=== PATIENT | male | born 1935 | race Caucasian/White ===

== ENCOUNTER → 2016-11-10 | Outpatient (CLI) | payer OTHER ==
[~2016-11-10] MED LIST: BENAZEPRIL HCL20 MG PO; FLOMAX0.4 MG PO; HYDROCHLOROTH12.5 M1 PO; HYDROCODONE-APA1 TA1 PO; PRILOSEC20 MG PO; SIMVASTATIN10 MG PO
== END ==
LOC: CAT 16:16
DX: K76.89 Other specified diseases of liver (principal); D18.00 Hemangioma unspecified site; J90 Pleural effusion, not elsewhere classified; J98.11 Atelectasis; R10.32 Left lower quadrant pain

== ENCOUNTER 2016-12-01 03:32 | Inpatient (IN) | payer OTHER ==
[~2016-12-01] VITALS: Ht 180.3 cm; Wt 74.9 kg
--- NOTE | ~2016-12-01 | P ---
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 He reports since September he has been having trouble swallowing. He just finished radiation therapy 2 days ago for the spine lesion. He reports he feels full almost immediately and has no appetite. Questionable history of dysphagia. He reports that even if he has couple of bites he will "bring it back up". PREOPERATIVE DIAGNOSES: Early satiety, vomiting and dysphagia. POSTOPERATIVE DIAGNOSES: 1. A 3 cm sliding type hiatus hernia. 2. Mild to moderate Schatzki ring. MEDICATIONS: Deep sedation with propofol per anesthesia. SPECIMEN: None. ESTIMATED BLOOD LOSS: None. PROCEDURE: Esophagogastroduodenoscopy with Hodge dilation. FINDINGS: Prior to propofol sedation, procedure of upper endoscopy was discussed over endoscopy and potential dilation was discussed with the patient as well as potential risks and its complications. He indicates he understands and desires to proceed. DESCRIPTION OF PROCEDURE: With the patient in left lateral decubitus position, the Fuji video endoscope was inserted in the cervical esophagus under direct vision without difficulty. Examination of this organ to its entire length revealed normal esophageal mucosa. The scope was advanced through the entire length of the esophagus. The mucosa was within normal limits. I did not see any evidence of ulceration mucosa disease from radiation therapy. Examination of the squamocolumnar junction revealed to be intact. He was noted to have a mild to moderate Schatzki ring. The scope passed easily through the ring. Scope was advanced into the stomach, which was examined on end view as well as retroflexed views. He was noted to have about 3 cm sliding type hiatus hernia. [facility] [address] [place] [address] PROCEDURE REPORT Name: ANNMARIE CHARLES Room #: 421-P ADM IN M.R.#: [id number] Admission: 12/01/16 Attend Phys: Paul Olmos MD Discharge: Date of : 35 Report #: [id number] Mucosa in the hernia was unremarkable. Upon retroflexion, the hiatus hernia was seen. No other abnormalities were identified. The pylorus was normal. Duodenal bulb was normal. Doing a sweep down to ligament of Treitz was normal. There is a history of a duodenal submucosal lesion in the second portion of duodenum, I could not identify any such lesion. No mass lesions were seen. Both the major and minor were seen and both were within normal limits. At that point, the scope was slowly withdrawn and careful circumferential views confirmed the above findings. The patient tolerated the procedure well. CONDITION OF THE PATIENT UPON DISCHARGE: Following the procedure, he was dilated with passage of 50-[place] Hodge dilator very carefully. The dilator passed without any significant risk resistance. The scope was reinserted and no evidence of a mucosal trauma from the dilation. Bleeding was not seen. 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 He described early satiety and vomiting and possibly dysphagia. I do not see any specific lesions. I do not see endoscopic evidence or gastroparesis. He had been on morphine for pain. He may have secondary gastroparesis with regards to his naroctics. He was recently started on metoclopramide. I will agree with the use of metoclopramide, at least on a short from basis. We will request a gastric emptying study to further evaluate his symptoms. Proton pump inhibitor would also be reasonable at this point. <ELECTRONICALLY SIGNED> By: Riley Ware MD 12/02/16 1714 0856 1145 Riley Ware MD /nt
--- NOTE | ~2016-12-01 | HC ---
[facility] [place] [address] CONSULTATION Name: ANNMARIE CHARLES Room #: 421-P [facility] IN M.R.#: [id number] Admission: 12/01/16 Attend Phys: Paul Olmos MD Discharge: Date of : 35 Report #: [id number] THIS REPORT FOR: //name// CC: Usha Olmos MD PRIMARY CARE PHYSICIAN: Usha De Leon M.D. REASON FOR CONSULTATION: History of left ureteral cancer. HISTORY OF PRESENT ILLNESS: The patient is an 81-year-old male who has a history of ureteral cancer since 07/31/2014. At that time, he had 2 lymph nodes that were positive and removed. The patient received adjuvant Taxol and carboplatin. He began chemotherapy on 09/25/2014. He had his ninth cycle on 05/20/2015. He then was on an investigational agent in November of 2015, with response and we have been watching this cancer and it has been slowly growing. He has been relatively asymptomatic. Unfortunately, he has had persistent, almost like an early satiety with vomiting may be 2-3 minutes after eating and drinking. He also has, what sounds like, constipation, though it is hard to tell. It sounds like maybe it is more that his bowels are slow, but not necessarily too firm. He also has a history of arthritis, hyperlipidemia and hypertension. The patient recently denied fevers, chills. Did have some dysesthesias which have pretty much gone away. He had no blood in his urine or stool. No melena. No shortness of air. No chest pain. No vision troubles. No mentation difficulties. PAST MEDICAL HISTORY: Past history, in addition to his history of the left-sided urothelial cancer, he also recently completed radiation therapy to T9 for back pain, which is now slightly better. He also has diffuse abdominal discomfort which is more anterior, more like cramping in nature. We tried tizanidine in the past and that had not worked very well. He has used milk of magnesia. He used Fleet. History of hyperlipidemia, appendectomy, GERD, left heel open reduction and internal fixation and bilateral cataracts. ALLERGIES: None. MEDICATIONS: At this time in the hospital include pantoprazole 40 b.i.d.; tamsulosin 0.4 daily; hydralazine p.r.n.; morphine controlled 30 b.i.d.; metoclopramide 10 b.i.d., begun on the ; Senokot S one tab daily, begun on 12/01; magnesium hydroxide p.r.n.; morphine p.r.n.; loratadine 10 mg daily; aspirin 81 daily and lisinopril 20 daily. PHYSICAL EXAMINATION: [facility] [address] [place] [address] CONSULTATION Name: ANNMARIE CHARLES Room #: 421-P [facility] IN M.R.#: [id number] Admission: 12/01/16 Attend Phys: Paul Olmos MD Discharge: Date of : 35 Report #: [id number] GENERAL: The patient appears his stated age. VITAL SIGNS: Height is 5 foot 11, which is 180.3 cm. Weight is 161 pounds, which is 73 kilograms. Blood pressure is 157/95, O2 sat 95, pulse 79, respirations 18 and temperature 97.7. He is afebrile. MOOD: He is alert and pleasant and conversant. His is present. NEUROLOGIC: His face is symmetrical. He is moving all extremities. He has good speech patterns. HEENT: Oropharynx clear. LUNGS: Clear with good symmetric, unlabored expansion. No wheezes or rhonchi. HEART: Regular rate. LYMPHATICS: No enlarged lymph nodes in the supraclavicular, cervical, axillary or inguinal region. ABDOMEN: He does have some slight tenderness, but no mass. EXTREMITIES: Without clubbing or cyanosis. LABORATORY DATA: Note that his recent CAT scan does have adrenal mass, which has been slightly large and thought to be cancer. He had a recent CAT scan done on 12/01/2016. This was compared to November 15. There was a pleural effusion on the left side, measuring 2.4 cm. Liver has some low-density lesions, thought to be suggestive for cysts. Kidneys, no hydronephrosis on the right; left is absent. Adrenal gland, large soft-tissue mass on the left, measuring 35 x 35 mm. Right adrenal gland is normal size. Abdominal aorta measures 25 mm. Retroperitoneal adenopathy on the right side, 22 x 18 mm, fairly stable compared to prior. There is also some similar para-aortic and paraceliac adenopathy. The left para-aortic adenopathy is slightly large at 24 x 20 mm. No fluid collections. Recent labs on this admit notable for BUN 16 and creatinine of 1.1. Liver functions normal. Albumin 3.2. White count 5.3, hemoglobin 12.2, MCV 93.5 and platelets 180,000. Differential fairly normal. ASSESSMENT AND PLAN: 1. Left ureteral cancer, recurrent, slowly progressing. It is possible the patient may have gastric wall involvement. We will wait to see gastric emptying time and/or wait to see benefit from Reglan. If it is thought this may be cancer related, could initiate chemotherapy with Gemzar and carboplatin, which we have been thinking about and we are aware of reasonable next step. There is also immunotherapy which is now available, but this could be longer to response rate. 2. Abdominal pain and back pain. Continue MS Contin and taper as needed. 3. Constipation. Continues meds as needed. [facility] [address] [place] [address] CONSULTATION Name: ANNMARIE CHARLES Room #: 421-P [facility] IN M.R.#: [id number] Admission: 12/01/16 Attend Phys: Paul Olmos MD Discharge: Date of : 35 Report #: [id number] 4. Hypertension. Meds as needed. 5. Allergies, loratadine. We will follow with you. <ELECTRONICALLY SIGNED> By: Tylor Bauer MD 12/04/16 0722 0908 1244 Tylor Bauer MD /nt
[2016-12-01 03:33] VITALS: BP 118/85
[2016-12-01] MEDS ORDERED: ASPIR 8181 MG PO (03:46)
[2016-12-01] MEDS ORDERED: MS CONTIN15 MG PO (03:47)
[2016-12-01] MEDS ORDERED: CLARITIN10 MG PO (03:48)
[2016-12-01 03:59] LABS: HEMATOCRIT 37.8 % (42.0-52.0); HEMOGLOBIN 12.9 gm/dL (14.0-18.0); MCH 31.7 pg (26.0-34.0); MCHC 34.2 g/dL (28.0-37.0); MCV 92.8 fL (80.0-100.0); PLATELET COUNT 217 thou/uL (150-400); RBC 4.07 mil/uL (4.50-6.00); RDW 12.6 % (10.5-14.5); WBC 6.7 thou/uL (4.0-11.0)
[2016-12-01 04:00] LABS: MANUAL DIFF YES
[2016-12-01 04:05] LABS: CALCIUM 8.8 mg/dL (8.5-10.1); CREATININE 1.4 mg/dL (0.7-1.3); POTASSIUM 4.3 mmol/L (3.5-5.1)
[2016-12-01 04:10] LABS: ALBUMIN 3.2 g/dL (3.4-5.0); DIRECT BILIRUBIN 0.3 mg/dL (<0.1-0.3); TOTAL BILIRUBIN 0.9 mg/dL (<0.1-1.0); TOTAL PROTEIN 6.5 g/dL (6.4-8.2)
[2016-12-01 04:41] LABS: ABSOLUTE NEUTROPHILS 5.4 thou/uL (1.4-8.2); TOTAL CELL COUNT 100
[2016-12-01 07:30] VITALS: BP 140/76
[2016-12-01 07:45] VITALS: BP 137/92
[2016-12-01 15:54] VITALS: BP 153/93
[2016-12-01 20:00] VITALS: BP 151/95
[2016-12-02 03:52] LABS: HEMATOCRIT 35.5 % (42.0-52.0); HEMOGLOBIN 12.2 gm/dL (14.0-18.0); MCH 32.1 pg (26.0-34.0); MCHC 34.3 g/dL (28.0-37.0); MCV 93.5 fL (80.0-100.0); RBC 3.79 mil/uL (4.50-6.00); RDW 12.4 % (10.5-14.5); WBC 5.3 thou/uL (4.0-11.0)
[2016-12-02 04:13] LABS: CREATININE 1.1 mg/dL (0.7-1.3); MAGNESIUM 1.8 mg/dL (1.8-2.4); POTASSIUM 3.6 mmol/L (3.5-5.1)
[2016-12-02 04:30] VITALS: BP 157/93
[2016-12-02 07:41] VITALS: BP 153/85
[2016-12-02 15:52] VITALS: BP 157/87
[2016-12-02 20:11] VITALS: BP 153/96
[2016-12-03 03:26] VITALS: BP 149/97
[2016-12-03 07:18] VITALS: BP 157/95
[2016-12-03 09:44] LABS: ALBUMIN 3.1 g/dL (3.4-5.0); CALCIUM 8.3 mg/dL (8.5-10.1); CREATININE 1.1 mg/dL (0.7-1.3); POTASSIUM 3.5 mmol/L (3.5-5.1); TOTAL BILIRUBIN 0.8 mg/dL (<0.1-1.0); TOTAL PROTEIN 6.1 g/dL (6.4-8.2)
[2016-12-03 16:08] VITALS: BP 156/103
[2016-12-03 20:00] VITALS: BP 169/99
[2016-12-04 01:30] VITALS: BP 162/99
[2016-12-04 04:23] LABS: HEMATOCRIT 38.3 % (42.0-52.0); HEMOGLOBIN 13.3 gm/dL (14.0-18.0); MCH 32.1 pg (26.0-34.0); MCHC 34.7 g/dL (28.0-37.0); MCV 92.6 fL (80.0-100.0); RBC 4.13 mil/uL (4.50-6.00); RDW 12.7 % (10.5-14.5); WBC 6.9 thou/uL (4.0-11.0)
[2016-12-04 04:30] VITALS: BP 174/108
[2016-12-04 07:32] VITALS: BP 168/92
[2016-12-04 12:31] LABS: URINE BILIRUBIN NEGATIVE (Negative); URINE BLOOD NEGATIVE (Negative); URINE COLOR YELLOW; URINE GLUCOSE-RANDOM* NEGATIVE (Negative); URINE KETONES 2+ (Negative); URINE NITRITE NEGATIVE (Negative); URINE PROTEIN (DIPSTICK) TRACE (Negative); URINE SPECIFIC GRAVITY >= 1.030 (1.003-1.035); URINE UROBILINOGEN 0.2 E.U./dl (0.2-1.0)
[2016-12-04 16:20] VITALS: BP 183/101
[2016-12-04 17:40] VITALS: BP 151/82
[2016-12-04 20:17] VITALS: BP 141/91
[2016-12-05 03:00] VITALS: BP 160/92
[2016-12-05 05:23] LABS: HEMATOCRIT 35.8 % (42.0-52.0); HEMOGLOBIN 12.4 gm/dL (14.0-18.0); MCHC 34.5 g/dL (28.0-37.0); MCV 92.7 fL (80.0-100.0); RBC 3.86 mil/uL (4.50-6.00); RDW 12.7 % (10.5-14.5); WBC 5.4 thou/uL (4.0-11.0)
[2016-12-05 05:37] LABS: ALBUMIN 2.5 g/dL (3.4-5.0); CALCIUM 7.9 mg/dL (8.5-10.1); POTASSIUM 3.1 mmol/L (3.5-5.1); TOTAL BILIRUBIN 0.6 mg/dL (<0.1-1.0); TOTAL PROTEIN 5.6 g/dL (6.4-8.2)
[2016-12-05 07:44] VITALS: BP 162/93
[2016-12-05] MEDS ORDERED: REGLAN 10 MG TA10 MG PO ×2 (09:25→09:35)
[2016-12-05 10:21] VITALS: BP 162/93
[2016-12-05 10:41] VITALS: BP 162/93
== END 2016-12-05 13:56 | disposition home health service (06) | DRG 686 ==
LOC: ER 03:32 → EROBS 06:21 → 4E 06:21
PROVIDERS: Emergency Medicine; Hospitalist; Nurse Practitioner
PROC: 0D758ZZ Dilation of Esophagus, Via Natural or Artificial Opening Endoscopic (ICD-10-PCS; principal; 2016-12-02)
DX: C66.9 Malignant neoplasm of unspecified ureter (principal); E43 Unspecified severe protein-calorie malnutrition; E87.1 Hypo-osmolality and hyponatremia; N17.9 Acute kidney failure, unspecified; J90 Pleural effusion, not elsewhere classified; I10 Essential (primary) hypertension; E78.5 Hyperlipidemia, unspecified; K21.9 Gastro-esophageal reflux disease without esophagitis; K59.00 Constipation, unspecified; N40.0 Benign prostatic hyperplasia without lower urinary tract symptoms; K22.2 Esophageal obstruction; K44.9 Diaphragmatic hernia without obstruction or gangrene; G62.9 Polyneuropathy, unspecified; R59.9 Enlarged lymph nodes, unspecified; Z79.82 Long term (current) use of aspirin; Z79.899 Other long term (current) drug therapy; Z90.49 Acquired absence of other specified parts of digestive tract; Z98.42 Cataract extraction status, left eye; Z98.41 Cataract extraction status, right eye; Z85.54 Personal history of malignant neoplasm of ureter; Z90.5 Acquired absence of kidney; Z68.23 Body mass index [BMI] 23.0-23.9, adult
CPT/HCPCS: 10084; 62110; 62900; 70005

== ENCOUNTER → 2016-12-12 | Outpatient (CLI) | payer OTHER ==
[~2016-12-12] MED LIST changes: +ASPIR 8181 MG PO; +CLARITIN10 MG PO; +MS CONTIN15 MG PO; +REGLAN 10 MG TA10 MG PO
== END ==
LOC: CAT 11:05
DX: N40.0 Benign prostatic hyperplasia without lower urinary tract symptoms (principal); K44.9 Diaphragmatic hernia without obstruction or gangrene; J90 Pleural effusion, not elsewhere classified; J98.11 Atelectasis; J18.9 Pneumonia, unspecified organism; R16.0 Hepatomegaly, not elsewhere classified

== ENCOUNTER 2016-12-20 02:52 | Emergency (ER) | payer OTHER ==
[~2016-12-20] VITALS: Ht 180.3 cm; Wt 69.4 kg
[2016-12-20 03:27] LABS: ABSOLUTE NEUTROPHILS 7.7 thou/uL (1.4-8.2); BASOPHILS 0.3 % (0.0-2.0); EOSINOPHILS 0.5 % (0.0-3.0); HEMATOCRIT 37.9 % (42.0-52.0); HEMOGLOBIN 13.3 gm/dL (14.0-18.0); LYMPHOCYTES 10.8 % (24.0-44.0); MCH 32.1 pg (26.0-34.0); MCV 91.7 fL (80.0-100.0); MONOCYTES 7.1 % (1.0-8.0); PLATELET COUNT 232 thou/uL (150-400); POLYS 81.3 % (36.0-66.0); RBC 4.14 mil/uL (4.50-6.00); RDW 13.6 % (10.5-14.5); WBC 9.5 thou/uL (4.0-11.0)
[2016-12-20 03:37] LABS: MANUAL DIFF NO
[2016-12-20 04:17] LABS: ALBUMIN 3.2 g/dL (3.4-5.0); CALCIUM 8.3 mg/dL (8.5-10.1); CREATININE 1.1 mg/dL (0.7-1.3); POTASSIUM 3.2 mmol/L (3.5-5.1); TOTAL BILIRUBIN 0.8 mg/dL (<0.1-1.0); TOTAL PROTEIN 6.2 g/dL (6.4-8.2)
[2016-12-20] MEDS ORDERED: LACTULOSE20 GM/30 M PO (05:05)
[2016-12-20] MEDS ORDERED: SENOKOT-S1 TA1 PO (05:05)
[2016-12-20 05:32] VITALS: BP 155/87
== END 2016-12-20 05:38 ==
LOC: ER 02:52
PROVIDERS: Emergency Medicine
DX: K59.00 Constipation, unspecified (principal); I10 Essential (primary) hypertension; E78.5 Hyperlipidemia, unspecified; Z98.890 Other specified postprocedural states; K21.9 Gastro-esophageal reflux disease without esophagitis; Z88.8 Allergy status to other drugs, medicaments and biological substances; F10.99 Alcohol use, unspecified with unspecified alcohol-induced disorder

== ENCOUNTER 2017-02-06 15:07 | Inpatient (IN) | payer OTHER ==
[~2017-02-06] VITALS: Ht 177.8 cm; Wt 67.1 kg
--- NOTE | ~2017-02-06 | EKG ---
[address] [address] ELECTROCARDIOGRAM REPORT Name: ANNMARIE CHARLES Room #: 418-P ADM IN M.R.#: [id number] Admission: 02/06/17 Attend Phys: Juliano Salinas DO Discharge: Date of : 35 Report #: [id number] THIS REPORT FOR: //name// [facility] ED Test Date: 2017-02-06 Test Time: 15:25:46 Pat Name: ANNMARIE CHARLES Department: Room: [facility] Gender: M Air Drier: Boubacar CHAVES : 1935 Requested By: Freda Salinas Order Number: [id number] MD: Sylvain Mullen Measurements Intervals [place] Rate: 82 P: 38 RI: 157 QRS: -8 QRSD: 81 T: 37 QT: 382 QTc: 446 Interpretive Statements Sinus rhythm Probable left atrial enlargement Compared to ECG 07/10/2014 13:17:02 Sinus arrhythmia no longer present Electronically Signed On 02-07-2017 12:49:48 CDT by Sylvain Mullen [email or web address] <ELECTRONICALLY SIGNED> By: Sylvain Mullen MD 02/07/17 1249 1525 1525 Sylvain Mullen MD /TAMIKA
[~2017-02-06 15:07] MED LIST changes: +LACTULOSE20 GM/30 M PO; +SENOKOT-S1 TA1 PO
[2017-02-06 15:08] VITALS: BP 137/91
[2017-02-06 15:47] LABS: HEMATOCRIT 37.5 % (42.0-52.0); HEMOGLOBIN 12.9 gm/dL (14.0-18.0); MCH 32.7 pg (26.0-34.0); MCHC 34.5 g/dL (28.0-37.0); MCV 94.9 fL (80.0-100.0); PLATELET COUNT 186 thou/uL (150-400); RBC 3.95 mil/uL (4.50-6.00); RDW 15.3 % (10.5-14.5); WBC 8.8 thou/uL (4.0-11.0)
[2017-02-06 15:52] LABS: MANUAL DIFF YES
[2017-02-06 16:05] LABS: ALBUMIN 3.6 g/dL (3.4-5.0); ALKALINE PHOSPHATASE 104 U/L (46-116); ANION GAP 9 mmol/L (7-16); BUN 15 mg/dL (7-18); CALCIUM 9.6 mg/dL (8.5-10.1); CHLORIDE 83 mmol/L (98-107); CO2 28 mmol/L (21-32); CREATININE 1.1 mg/dL (0.7-1.3); GLUCOSE 108 mg/dL (74-106); POTASSIUM 3.7 mmol/L (3.5-5.1); SGOT 28 U/L (15-37); SGPT 18 U/L (30-65); SODIUM 120 mmol/L (136-145); TOTAL BILIRUBIN 0.8 mg/dL (<0.1-1.0); TOTAL PROTEIN 7.5 g/dL (6.4-8.2); TROPONIN-I < 0.04 ng/mL (<0.04-0.07)
[2017-02-06 16:21] LABS: ABSOLUTE NEUTROPHILS 7.3 thou/uL (1.4-8.2); ANISOCYTOSIS 1+; TOTAL CELL COUNT 100
[2017-02-06 16:42] LABS: URINE BLOOD NEGATIVE (Negative); URINE COLOR YELLOW; URINE GLUCOSE-RANDOM* NEGATIVE (Negative); URINE KETONES 1+ (Negative); URINE NITRITE NEGATIVE (Negative); URINE PROTEIN (DIPSTICK) 1+ (Negative); URINE SPECIFIC GRAVITY 1.025 (1.003-1.035); URINE UROBILINOGEN 0.2 E.U./dl (0.2-1.0)
[2017-02-06 16:44] LABS: URINE BILIRUBIN NEGATIVE (Negative)
[2017-02-06 16:50] LABS: BACTERIA 1-9 Few /HPF (None Seen); CASTS None Seen /LPF (None Seen); CRYSTALS None Seen /LPF (None Seen); SQUAMOUS >10 Many /LPF (0-3); URINE RBC None Seen /HPF (0-2); URINE WBC 0-5 Rare /HPF (0-5)
[2017-02-06 17:04] VITALS: BP 167/100
[2017-02-06 17:33] VITALS: BP 167/96
[2017-02-06 19:33] VITALS: BP 149/97
[2017-02-07 00:06] VITALS: BP 157/93
[2017-02-07 03:15] VITALS: BP 168/97
[2017-02-07 05:34] LABS: CALCIUM 8.4 mg/dL (8.5-10.1); CREATININE 0.9 mg/dL (0.7-1.3); POTASSIUM 4.1 mmol/L (3.5-5.1)
[2017-02-07 07:04] VITALS: BP 137/80
[2017-02-07 07:38] LABS: HEMATOCRIT 31.6 % (42.0-52.0); MCH 32.8 pg (26.0-34.0); MCHC 34.4 g/dL (28.0-37.0); MCV 95.4 fL (80.0-100.0); RBC 3.31 mil/uL (4.50-6.00); RDW 15.3 % (10.5-14.5); WBC 6.7 thou/uL (4.0-11.0)
[2017-02-07 07:40] LABS: MANUAL DIFF YES
[2017-02-07 07:41] LABS: HEMOGLOBIN 10.9 gm/dL (14.0-18.0)
[2017-02-07 08:08] LABS: ABSOLUTE NEUTROPHILS 5.6 thou/uL (1.4-8.2); TOTAL CELL COUNT 100
[2017-02-07 08:50] LABS: PLATELET COUNT 125 thou/uL (150-400)
[2017-02-07 15:32] VITALS: BP 142/87
[2017-02-07 20:13] VITALS: BP 147/90
[2017-02-08 03:19] VITALS: BP 152/97
[2017-02-08 06:58] VITALS: BP 144/85
[2017-02-08 10:30] LABS: HEMATOCRIT 35.7 % (42.0-52.0); HEMOGLOBIN 12.3 gm/dL (14.0-18.0); MCH 33.2 pg (26.0-34.0); MCHC 34.5 g/dL (28.0-37.0); MCV 96.3 fL (80.0-100.0); PLATELET COUNT 129 thou/uL (150-400); RDW 15.7 % (10.5-14.5); WBC 9.2 thou/uL (4.0-11.0)
[2017-02-08 10:31] LABS: MANUAL DIFF YES
[2017-02-08 10:34] LABS: CALCIUM 8.4 mg/dL (8.5-10.1); CREATININE 0.8 mg/dL (0.7-1.3); POTASSIUM 4.3 mmol/L (3.5-5.1)
[2017-02-08 11:28] LABS: ABSOLUTE NEUTROPHILS 8.4 thou/uL (1.4-8.2); PLATELET ESTIMATE NORMAL; TOTAL CELL COUNT 100
[2017-02-08 14:48] VITALS: BP 144/85
== END 2017-02-08 15:24 | disposition home or self-care (01) | DRG 641 ==
LOC: ER 15:07 → EROBS 16:32 → 4E 16:32
PROVIDERS: Family Medicine; Internal Medicine Geriatric Medicine; Physician Assistant
DX: E87.1 Hypo-osmolality and hyponatremia (principal); C66.9 Malignant neoplasm of unspecified ureter; I10 Essential (primary) hypertension; K21.9 Gastro-esophageal reflux disease without esophagitis; E78.00 Pure hypercholesterolemia, unspecified; Z90.49 Acquired absence of other specified parts of digestive tract; Z98.42 Cataract extraction status, left eye; Z98.41 Cataract extraction status, right eye; Z88.8 Allergy status to other drugs, medicaments and biological substances
CPT/HCPCS: 10183

== ENCOUNTER 2017-02-13 16:07 | Inpatient (IN) | payer OTHER ==
[~2017-02-13] VITALS: Ht 177.8 cm; Wt 72.1 kg
--- NOTE | ~2017-02-13 | CNG ---
[facility] [place] [place] [address] CYTO-NONGYN REPORT PROCEDURE Name: LEN CHILD Room #: 457-P ADM IN M.R.#: [id number] Admission: 02/13/17 Date of : 35 Discharge: Report #: [id number] Path Case #: [id number] CYTOPATHOLOGY REPORT COLLECTION DATE: 02/17/2017 RECEIVED DATE: 02/22/2017 SUBMITTING PHYS: Dr. Jabari Bryson OTHER PHYS: Dr. Paul De Leon CLINICAL HISTORY: Jaundice. SPECIMEN(S) RECEIVED: A.Patriot rinse, Liver * * * * * * * * * * * * FINAL DIAGNOSIS: A. Liver, Patriot rinse: - No malignant epithelial cells identified. Paucicellular specimen with scant ductal epithelial cells and extracellular bilirubin pigment present. PATHOLOGIST: Jasmin Henry M.D. REPORT ELECTRONICALLY SIGNED BY: Jasmin Henry M.D. DATE/TIME: 02/23/2017 16:19 * * * * * * * * * * * * GROSS PATHOLOGY: A. Patriot rinse, Liver: The specimen is labeled "Len Child" and consists of a brush tip in fixative. One ThinPrep slide was prepared. (clt 02.22.2017) PAN SHAKER(S): [facility] INITIAL CPT CODE(S): A; 37300 Professional services performed by [facility] at [facility] [address] [facility] , [place] [address] Technical services performed by [facility] at [address] [place] [address]., [address], [place] [address]. [facility] [address] [place] [address], [address] [place] [address] [facility] [address] [place] [address] CYTO-NONGYN REPORT PROCEDURE Name: LEN CHILD Room #: 457-P ADM IN M.R.#: [id number] Admission: 02/13/17 Date of : 35 Discharge: Report #: [id number] Path Case #: [id number] PHONE: [phone] DIRECTOR: Feliz Galeana M.D. * * * END OF REPORT * * *
[2017-02-13 16:29] VITALS: BP 129/78
[2017-02-13 16:59] LABS: HEMATOCRIT 34.3 % (42.0-52.0); HEMOGLOBIN 11.7 gm/dL (14.0-18.0); MCH 33.1 pg (26.0-34.0); MCHC 34.1 g/dL (28.0-37.0); MCV 97.3 fL (80.0-100.0); RBC 3.52 mil/uL (4.50-6.00); RDW 15.6 % (10.5-14.5); WBC 11.9 thou/uL (4.0-11.0)
[2017-02-13 17:00] LABS: MANUAL DIFF YES
[2017-02-13 17:09] LABS: CALCIUM 8.6 mg/dL (8.5-10.1); POTASSIUM 4.9 mmol/L (3.5-5.1)
[2017-02-13 17:13] LABS: ALBUMIN 2.6 g/dL (3.4-5.0); TOTAL PROTEIN 6.4 g/dL (6.4-8.2)
[2017-02-13 17:22] LABS: ABSOLUTE NEUTROPHILS 10.5 thou/uL (1.4-8.2); ANISOCYTOSIS 2+; TOTAL CELL COUNT 100
[2017-02-13 17:23] LABS: HYPOCHROMASIA 1+; PLATELET COUNT 166 thou/uL (150-400); POIKILOCYTOSIS SLIGHT
[2017-02-13 20:03] VITALS: BP 153/103
[2017-02-13 23:53] VITALS: BP 133/80
[2017-02-14 07:00] LABS: ALBUMIN 2.5 g/dL (3.4-5.0); CALCIUM 7.9 mg/dL (8.5-10.1); CREATININE 0.8 mg/dL (0.7-1.3); MAGNESIUM 1.8 mg/dL (1.8-2.4); POTASSIUM 4.9 mmol/L (3.5-5.1); TOTAL BILIRUBIN 7.3 mg/dL (<0.1-1.0); TOTAL PROTEIN 5.4 g/dL (6.4-8.2)
[2017-02-14 07:20] LABS: HEMATOCRIT 33.2 % (42.0-52.0); HEMOGLOBIN 11.4 gm/dL (14.0-18.0); MCH 33.2 pg (26.0-34.0); MCHC 34.2 g/dL (28.0-37.0); MCV 97.3 fL (80.0-100.0); RBC 3.42 mil/uL (4.50-6.00); RDW 15.8 % (10.5-14.5); WBC 8.5 thou/uL (4.0-11.0)
[2017-02-14 07:26] LABS: MANUAL DIFF YES
[2017-02-14 07:29] VITALS: BP 125/84
[2017-02-14 07:33] LABS: INR 1.1
[2017-02-14 08:48] LABS: ABSOLUTE NEUTROPHILS 7.3 thou/uL (1.4-8.2); PLATELET COUNT 126 thou/uL (150-400); TOTAL CELL COUNT 100
[2017-02-14 08:49] LABS: PLATELET ESTIMATE NORMAL
[2017-02-14 11:38] VITALS: BP 149/78
[2017-02-14 13:12] VITALS: BP 149/78
[2017-02-14 16:06] VITALS: BP 140/85
[2017-02-14 19:35] VITALS: BP 139/89
[2017-02-15 04:40] VITALS: BP 143/93
[2017-02-15 05:45] LABS: HEMOGLOBIN 10.9 gm/dL (14.0-18.0); MCH 33.7 pg (26.0-34.0); MCHC 34.2 g/dL (28.0-37.0); MCV 98.5 fL (80.0-100.0); RBC 3.25 mil/uL (4.50-6.00); RDW 15.9 % (10.5-14.5); WBC 7.9 thou/uL (4.0-11.0)
[2017-02-15 05:56] LABS: ALBUMIN 2.2 g/dL (3.4-5.0); CALCIUM 8.4 mg/dL (8.5-10.1); CREATININE 1.1 mg/dL (0.7-1.3); POTASSIUM 4.1 mmol/L (3.5-5.1); TOTAL BILIRUBIN 6.5 mg/dL (<0.1-1.0); TOTAL PROTEIN 5.5 g/dL (6.4-8.2)
[2017-02-15 07:50] VITALS: BP 139/86
[2017-02-15 12:59] VITALS: BP 120/75
[2017-02-15 16:53] VITALS: BP 157/88
[2017-02-15 20:11] VITALS: BP 140/83
[2017-02-16 03:59] VITALS: BP 134/77
[2017-02-16 06:37] LABS: HEMATOCRIT 32.7 % (42.0-52.0); HEMOGLOBIN 10.9 gm/dL (14.0-18.0); MCH 33.2 pg (26.0-34.0); MCHC 33.5 g/dL (28.0-37.0); MCV 99.2 fL (80.0-100.0); PLATELET COUNT 121 thou/uL (150-400); RBC 3.29 mil/uL (4.50-6.00); RDW 15.9 % (10.5-14.5); WBC 7.7 thou/uL (4.0-11.0)
[2017-02-16 06:40] LABS: MANUAL DIFF YES
[2017-02-16 06:51] LABS: APTT 30.3 Seconds (24.5-32.8); INR 1.1; PROTIME 11.3 Seconds (9.3-11.4)
[2017-02-16 06:54] LABS: ALBUMIN 2.2 g/dL (3.4-5.0); CALCIUM 8.5 mg/dL (8.5-10.1); CREATININE 1.1 mg/dL (0.7-1.3); MAGNESIUM 1.8 mg/dL (1.8-2.4); POTASSIUM 3.8 mmol/L (3.5-5.1); TOTAL BILIRUBIN 6.9 mg/dL (<0.1-1.0); TOTAL PROTEIN 5.5 g/dL (6.4-8.2)
[2017-02-16 07:02] VITALS: BP 139/74
[2017-02-16 08:40] LABS: ABSOLUTE NEUTROPHILS 6.3 thou/uL (1.4-8.2); ANISOCYTOSIS SLIGHT; TOTAL CELL COUNT 100
[2017-02-16 09:56] LABS: DIRECT BILIRUBIN 5.4 mg/dL (<0.1-0.3)
[2017-02-16 11:37] VITALS: BP 158/94
[2017-02-16 15:46] VITALS: BP 141/86
[2017-02-16 20:00] VITALS: BP 152/82
[2017-02-17 04:23] VITALS: BP 132/77
[2017-02-17 06:54] VITALS: BP 128/77
[2017-02-17 11:28] VITALS: BP 134/71
[2017-02-17 17:15] VITALS: BP 154/86
[2017-02-17 19:17] VITALS: BP 146/96
[2017-02-17 23:35] VITALS: BP 147/93
[2017-02-18 03:47] VITALS: BP 144/91
[2017-02-18 04:12] LABS: ALBUMIN 2.1 g/dL (3.4-5.0); CALCIUM 8.6 mg/dL (8.5-10.1); CREATININE 1.1 mg/dL (0.7-1.3); POTASSIUM 4.1 mmol/L (3.5-5.1); TOTAL BILIRUBIN 4.2 mg/dL (<0.1-1.0); TOTAL PROTEIN 5.5 g/dL (6.4-8.2)
[2017-02-18 04:22] LABS: HEMATOCRIT 31.4 % (42.0-52.0); HEMOGLOBIN 10.8 gm/dL (14.0-18.0); MCH 33.7 pg (26.0-34.0); MCHC 34.3 g/dL (28.0-37.0); MCV 98.1 fL (80.0-100.0); RBC 3.2 mil/uL (4.50-6.00); WBC 7.7 thou/uL (4.0-11.0)
[2017-02-18 07:07] VITALS: BP 142/76
[2017-02-18 11:17] VITALS: BP 141/75
[2017-02-18 15:43] VITALS: BP 150/84
[2017-02-18 19:45] VITALS: BP 150/87
[2017-02-19 04:59] LABS: ABSOLUTE NEUTROPHILS 6.4 thou/uL (1.4-8.2); BASOPHILS 0.3 % (0.0-2.0); EOSINOPHILS 0.4 % (0.0-3.0); HEMATOCRIT 29.3 % (42.0-52.0); HEMOGLOBIN 10.2 gm/dL (14.0-18.0); LYMPHOCYTES 8.7 % (24.0-44.0); MCH 34.1 pg (26.0-34.0); MCHC 34.9 g/dL (28.0-37.0); MCV 97.6 fL (80.0-100.0); PLATELET COUNT 115 thou/uL (150-400); POLYS 82.6 % (36.0-66.0); RDW 15.8 % (10.5-14.5); WBC 7.7 thou/uL (4.0-11.0)
[2017-02-19 05:00] LABS: MANUAL DIFF NO
[2017-02-19 05:13] LABS: ALBUMIN 2.2 g/dL (3.4-5.0); CALCIUM 8.6 mg/dL (8.5-10.1); CREATININE 1.1 mg/dL (0.7-1.3); MAGNESIUM 1.9 mg/dL (1.8-2.4); POTASSIUM 3.9 mmol/L (3.5-5.1); TOTAL BILIRUBIN 2.9 mg/dL (<0.1-1.0); TOTAL PROTEIN 5.4 g/dL (6.4-8.2)
[2017-02-19 05:20] VITALS: BP 152/85
[2017-02-19 07:46] VITALS: BP 146/82
[2017-02-19 13:21] VITALS: BP 137/83
[2017-02-19 16:00] VITALS: BP 152/93
[2017-02-19 19:41] VITALS: BP 160/99
[2017-02-20 04:40] VITALS: BP 143/92
[2017-02-20 07:36] VITALS: BP 152/83
[2017-02-20 11:32] VITALS: BP 143/73
[2017-02-20 19:35] VITALS: BP 135/93
[2017-02-21 04:52] VITALS: BP 151/92
[2017-02-21 08:06] LABS: HEMATOCRIT 32.5 % (42.0-52.0); HEMOGLOBIN 11.1 gm/dL (14.0-18.0); MCH 33.8 pg (26.0-34.0); MCV 99.4 fL (80.0-100.0); PLATELET COUNT 123 thou/uL (150-400); RBC 3.27 mil/uL (4.50-6.00); RDW 15.6 % (10.5-14.5); WBC 9.8 thou/uL (4.0-11.0)
[2017-02-21 08:09] LABS: MANUAL DIFF YES
[2017-02-21 08:18] VITALS: BP 150/93
[2017-02-21 08:20] LABS: ALBUMIN 2.4 g/dL (3.4-5.0); CALCIUM 9.1 mg/dL (8.5-10.1); CREATININE 1.2 mg/dL (0.7-1.3); POTASSIUM 3.6 mmol/L (3.5-5.1); TOTAL BILIRUBIN 2.6 mg/dL (<0.1-1.0); TOTAL PROTEIN 6.1 g/dL (6.4-8.2)
[2017-02-21 09:03] LABS: ABSOLUTE NEUTROPHILS 8.6 thou/uL (1.4-8.2); TOTAL CELL COUNT 100
[2017-02-21 11:27] VITALS: BP 144/87
[2017-02-21 15:40] VITALS: BP 131/88
[2017-02-21 20:00] VITALS: BP 143/89
[2017-02-22 04:00] VITALS: BP 142/89
[2017-02-22 06:20] LABS: HEMATOCRIT 32.5 % (42.0-52.0); HEMOGLOBIN 11.1 gm/dL (14.0-18.0); MCHC 34.1 g/dL (28.0-37.0); MCV 99.6 fL (80.0-100.0); PLATELET COUNT 122 thou/uL (150-400); RBC 3.27 mil/uL (4.50-6.00); RDW 15.8 % (10.5-14.5); WBC 9.6 thou/uL (4.0-11.0)
[2017-02-22 06:23] LABS: MANUAL DIFF YES
[2017-02-22 06:43] LABS: CALCIUM 8.9 mg/dL (8.5-10.1); CREATININE 1.2 mg/dL (0.7-1.3); POTASSIUM 3.7 mmol/L (3.5-5.1)
[2017-02-22 07:11] LABS: ABSOLUTE NEUTROPHILS 8.2 thou/uL (1.4-8.2); ANISOCYTOSIS SLIGHT; TOTAL CELL COUNT 100
[2017-02-22 08:14] VITALS: BP 144/96
[2017-02-22 11:10] VITALS: BP 114/71
[2017-02-22 16:07] VITALS: BP 129/80
[2017-02-22 20:00] VITALS: BP 117/77
[2017-02-23 04:00] VITALS: BP 122/76; BP 169/76
[2017-02-23 06:30] LABS: HEMATOCRIT 29.9 % (42.0-52.0); HEMOGLOBIN 10.3 gm/dL (14.0-18.0); MCH 34.2 pg (26.0-34.0); MCHC 34.3 g/dL (28.0-37.0); MCV 99.8 fL (80.0-100.0); RDW 15.7 % (10.5-14.5); WBC 8.9 thou/uL (4.0-11.0)
[2017-02-23 06:50] LABS: INR 1.2
[2017-02-23 06:55] LABS: ALBUMIN 2.2 g/dL (3.4-5.0); CREATININE 1.3 mg/dL (0.7-1.3); POTASSIUM 3.7 mmol/L (3.5-5.1); TOTAL BILIRUBIN 2.4 mg/dL (<0.1-1.0); TOTAL PROTEIN 5.6 g/dL (6.4-8.2)
[2017-02-23 08:00] VITALS: BP 132/82
[2017-02-23 13:45] VITALS: BP 136/89
[2017-02-23 14:00] VITALS: BP 149/82
[2017-02-23 16:30] VITALS: BP 99/65
[2017-02-23 20:17] VITALS: BP 122/79
[2017-02-24 05:31] VITALS: BP 97/60
[2017-02-24 06:09] LABS: HEMATOCRIT 28.5 % (42.0-52.0); HEMOGLOBIN 9.5 gm/dL (14.0-18.0); MCH 33.1 pg (26.0-34.0); MCHC 33.2 g/dL (28.0-37.0); MCV 99.8 fL (80.0-100.0); PLATELET COUNT 127 thou/uL (150-400); RBC 2.86 mil/uL (4.50-6.00); RDW 15.7 % (10.5-14.5); WBC 13.4 thou/uL (4.0-11.0)
[2017-02-24 06:12] LABS: MANUAL DIFF YES
[2017-02-24 06:22] LABS: ALBUMIN 1.9 g/dL (3.4-5.0); CALCIUM 8.2 mg/dL (8.5-10.1); CREATININE 1.7 mg/dL (0.7-1.3); POTASSIUM 4.5 mmol/L (3.5-5.1); TOTAL BILIRUBIN 3.4 mg/dL (<0.1-1.0); TOTAL PROTEIN 5.3 g/dL (6.4-8.2)
[2017-02-24 07:31] LABS: ABSOLUTE NEUTROPHILS 12.2 thou/uL (1.4-8.2); TOTAL CELL COUNT 100
[2017-02-24 07:33] LABS: ANISOCYTOSIS SLIGHT
[2017-02-24 07:57] VITALS: BP 110/64
[2017-02-24] MEDS ORDERED: HYDROCODON-ACE1 EAC7 PO (11:34)
[2017-02-24 11:39] VITALS: BP 105/70
[2017-02-24 14:29] VITALS: BP 105/70
[2017-02-24 17:00] VITALS: BP 111/64
[2017-02-24 19:13] VITALS: BP 110/74
[2017-02-25 03:37] VITALS: BP 113/75
[2017-02-25 05:12] LABS: HEMATOCRIT 27.2 % (42.0-52.0); MCH 33.5 pg (26.0-34.0); MCHC 33.3 g/dL (28.0-37.0); MCV 100.7 fL (80.0-100.0); RBC 2.7 mil/uL (4.50-6.00); RDW 15.6 % (10.5-14.5)
[2017-02-25 06:22] LABS: CALCIUM 8.6 mg/dL (8.5-10.1); CREATININE 2.1 mg/dL (0.7-1.3); POTASSIUM 4.2 mmol/L (3.5-5.1); TOTAL BILIRUBIN 2.7 mg/dL (<0.1-1.0); TOTAL PROTEIN 5.4 g/dL (6.4-8.2)
[2017-02-25 06:57] VITALS: BP 119/81
[2017-02-25 11:44] VITALS: BP 109/67
[2017-02-25 15:40] VITALS: BP 102/67
[2017-02-25 20:00] VITALS: BP 106/70
[2017-02-26 02:56] VITALS: BP 124/83
[2017-02-26 05:23] LABS: HEMATOCRIT 25.4 % (42.0-52.0); HEMOGLOBIN 8.6 gm/dL (14.0-18.0); MCH 33.7 pg (26.0-34.0); MCV 99.3 fL (80.0-100.0); RBC 2.55 mil/uL (4.50-6.00); RDW 15.9 % (10.5-14.5)
[2017-02-26 05:40] LABS: ALBUMIN 1.9 g/dL (3.4-5.0); CALCIUM 8.4 mg/dL (8.5-10.1); CREATININE 2.6 mg/dL (0.7-1.3); POTASSIUM 3.6 mmol/L (3.5-5.1); TOTAL BILIRUBIN 1.9 mg/dL (<0.1-1.0); TOTAL PROTEIN 5.4 g/dL (6.4-8.2)
[2017-02-26 08:09] VITALS: BP 127/80
[2017-02-26 11:35] VITALS: BP 120/74
[2017-02-26 15:24] VITALS: BP 115/76
[2017-02-26 20:51] VITALS: BP 111/73
[2017-02-27 04:00] VITALS: BP 125/84
[2017-02-27 07:50] VITALS: BP 106/63
[2017-02-27 08:49] LABS: HEMATOCRIT 26.8 % (42.0-52.0); MCH 34.2 pg (26.0-34.0); MCHC 33.8 g/dL (28.0-37.0); MCV 101.3 fL (80.0-100.0); RBC 2.64 mil/uL (4.50-6.00); RDW 15.5 % (10.5-14.5); WBC 8.6 thou/uL (4.0-11.0)
[2017-02-27 09:04] LABS: CALCIUM 8.6 mg/dL (8.5-10.1); CREATININE 2.9 mg/dL (0.7-1.3); POTASSIUM 3.7 mmol/L (3.5-5.1); TOTAL BILIRUBIN 1.7 mg/dL (<0.1-1.0); TOTAL PROTEIN 5.8 g/dL (6.4-8.2)
[2017-02-27 11:43] VITALS: BP 113/70
[2017-02-27 16:18] VITALS: BP 121/80
[2017-02-27 19:00] VITALS: BP 138/82
[2017-02-28 04:13] VITALS: BP 126/81
[2017-02-28 07:15] VITALS: BP 113/73
[2017-02-28] MEDS ORDERED: ROXANOL 20 M20 MG/ML BUCCAL (10:56)
[2017-02-28] MEDS ORDERED: ATIVAN1 MG PO (10:56)
== END 2017-02-28 13:01 | disposition hospice, inpatient (51) | DRG 408 ==
LOC: ER 16:07 → 4W 17:22 → EROBS 17:22 → 4W 19:41
PROVIDERS: Internal Medicine; Internal Medicine Endocrinology, Diabetes & Metabolism; Nurse Practitioner; Nurse Practitioner Adult Health; Physician Assistant; Radiology Vascular & Interventional Radiology
DX: K83.1 Obstruction of bile duct (principal); E43 Unspecified severe protein-calorie malnutrition; E87.1 Hypo-osmolality and hyponatremia; C66.2 Malignant neoplasm of left ureter; C77.9 Secondary and unspecified malignant neoplasm of lymph node, unspecified; C79.51 Secondary malignant neoplasm of bone; I10 Essential (primary) hypertension; E78.00 Pure hypercholesterolemia, unspecified; K21.9 Gastro-esophageal reflux disease without esophagitis; E80.6 Other disorders of bilirubin metabolism; N40.0 Benign prostatic hyperplasia without lower urinary tract symptoms; Z68.22 Body mass index [BMI] 22.0-22.9, adult; D64.9 Anemia, unspecified; K59.00 Constipation, unspecified; Z66 Do not resuscitate; R74.0 Nonspecific elevation of levels of transaminase and lactic acid dehydrogenase [LDH]; Z79.899 Other long term (current) drug therapy; Z90.49 Acquired absence of other specified parts of digestive tract; Z98.42 Cataract extraction status, left eye; Z98.41 Cataract extraction status, right eye; Z88.8 Allergy status to other drugs, medicaments and biological substances; Z90.5 Acquired absence of kidney; Z80.3 Family history of malignant neoplasm of breast
CPT/HCPCS: 10045; 10047; 62110; 62900; 70005